=== PATIENT | female | born 1965 | race Caucasian/White ===

== ENCOUNTER → 2016-12-11 | Outpatient (CLI) | payer MEDICARE ==
[~2016-12-11] MED LIST: ALPR-475 PO; ARIP10TA13 PO; ASPI-650 PO; ATOR10TA9 PO; ATOR40TA78 PO; CLON-364 PO; DIAZ5TAB PO; DIAZ5TAB4 PO; DIPH25CA61 PO; DOCU-144 PO; DOCU100C8 PO; FENT1PAT76 TD; FENT1PAT76 TP; FERR142T13 PO; HYDR2TAB40 PO; INSU100C SQ-INSULIN; INSU100I17 SQ-INSULIN; INSU100V8 SQ; INSU200I SQ-INSULIN; INSULINS; LEVO175T2 PO; LEVO200T PO; LIOT5TAB3 PO; LORA10TA3 PO; MEDR2.5T30 PO; METH500T97 PO; ONDA-39 PO; PANT40TA5 PO; PREG75CA PO; RANI150T8 PO; RIFA300C3 PO; VENL37.52 PO; VILA40TA PO; VILAZODONE HOMEMEDPO; astelin nasal spray NS
== END | disposition home or self-care (01) ==
LOC: CFH 09:08
PROVIDERS: ATTEND Internal Medicine Nephrology
DX: N28.1 Cyst of kidney, acquired (principal); E11.65 Type 2 diabetes mellitus with hyperglycemia; N18.3 Chronic kidney disease, stage 3 (moderate); E11.22 Type 2 diabetes mellitus with diabetic chronic kidney disease
CPT/HCPCS: 76770

== ENCOUNTER → 2017-03-13 | Outpatient (CLI) | payer MEDICARE ==
[~2017-03-13] MED LIST changes: -ARIP10TA13 PO; +ARIP10TA33 PO; +DOCU100C33 PO; -DOCU100C8 PO; -ONDA-39 PO; +ONDA4TAB12 PO
== END | disposition home or self-care (01) ==
LOC: CFH 15:20
PROVIDERS: ATTEND Nurse Practitioner Primary Care
DX: M47.22 Other spondylosis with radiculopathy, cervical region (principal); M47.893 Other spondylosis, cervicothoracic region; R20.0 Anesthesia of skin; Z98.1 Arthrodesis status
CPT/HCPCS: 72141

== ENCOUNTER → 2017-06-14 | Outpatient (CLI) | payer MEDICARE | END | disposition home or self-care (01) | LOC: CFH 14:10 | PROVIDERS: ATTEND Internal Medicine Nephrology | DX: N17.9 Acute kidney failure, unspecified (principal); N28.1 Cyst of kidney, acquired; E11.65 Type 2 diabetes mellitus with hyperglycemia; E11.22 Type 2 diabetes mellitus with diabetic chronic kidney disease; N18.9 Chronic kidney disease, unspecified; M25.561 Pain in right knee; Z79.1 Long term (current) use of non-steroidal anti-inflammatories (NSAID) | CPT/HCPCS: 76770 ==

== ENCOUNTER → 2017-09-20 | Outpatient (CLI) | payer MEDICARE ==
[~2017-09-20] MED LIST changes: +RANI150T23 PO; -RANI150T8 PO
== END ==
LOC: PETCFH 08:06
PROVIDERS: ATTEND Nurse Practitioner Family
DX: R11.0 Nausea (principal); E11.9 Type 2 diabetes mellitus without complications
CPT/HCPCS: 78264; A9541

== ENCOUNTER → 2017-11-20 | Outpatient (CLI) | payer MEDICARE ==
[~2017-11-20] MED LIST changes: +CHOL500045 PO; +DOXY100T PO; +ESOM40CA PO; +INSU100I11 SC
[2017-11-20 14:32] LABS: INTERNATIONAL NORMALIZED RATIO 1.03 (0.93-1.1); PROTHROMBIN TIME 10.7 Seconds (9.6-11.5)
[2017-11-20 14:35] LABS: ALBUMIN 3.5 g/dL (3.4-5.0); ANION GAP 7 mmol/L (5-15); CALCIUM 9.2 mg/dL (8.5-10.1); CHLORIDE 107 mmol/L (98-107)
[2017-11-20 14:38] LABS: ALANINE AMINOTRANSFERASE 24 U/L (12-78); ALKALINE PHOSPHATASE 131 U/L (45-117); BILIRUBIN,TOTAL 0.4 mg/dL (0.2-1.0); CREATININE 1.14 mg/dL (0.55-1.02); TOTAL PROTEIN 7.6 g/dL (6.4-8.2)
[2017-11-20 14:41] LABS: BASOPHILS # (AUTO) 0.08 x10^3/uL (0-0.1); BASOPHILS % (AUTO) 1 % (0-1); EOSINOPHILS % (AUTO) 0 % (1-7); LYMPHOCYTES # (AUTO) 2.06 x10^3/uL (1-3.4); LYMPHOCYTES % (AUTO) 16 % (22-44); MD NO; MEAN CORPUSCULAR HEMOGLOBIN 27.2 pg (27.0-34.8); MEAN CORPUSCULAR HGB CONC 33.3 g/dL (32.4-35.8); MEAN CORPUSCULAR VOLUME 81.8 fL (80-100); MEAN PLATELET VOLUME 9.2 fL (7.4-10.4); MONOCYTES # (AUTO) 0.74 x10^3/uL (0.2-0.8); MONOCYTES % (AUTO) 6 % (2-9); NEUTROPHILS # (AUTO) 10.05 x10^3/uL (1.8-6.8); NEUTROPHILS % (AUTO) 78 % (42-75); PLATELET COUNT 316 x10^3/uL (130-400); RED BLOOD COUNT 5.02 x10^6/uL (3.82-5.3)
[2017-11-20 14:57] LABS: MICROSCOPIC AUTO
[2017-11-20 14:59] LABS: CULTURE INDICATED? YES
== END | disposition home or self-care (01) ==
LOC: STAR 13:01
PROVIDERS: ATTEND Orthopaedic Surgery Orthopaedic Surgery of the Spine
DX: Z01.818 Encounter for other preprocedural examination (principal); I51.7 Cardiomegaly; M96.0 Pseudarthrosis after fusion or arthrodesis
CPT/HCPCS: 36415; 71046; 80053; 81001; 85025; 85610; 85730; 87086; 93005

== ENCOUNTER → 2017-12-07 | Outpatient (CLI) | payer MEDICARE ==
[~2017-12-07] MED LIST changes: -CLON-364 PO; +CLON0.5T11 PO; +HYDR4TAB48 PO
[2017-12-07 11:51] LABS: BASOPHILS # (AUTO) 0.08 x10^3/uL (0-0.1); BASOPHILS % (AUTO) 1 % (0-1); MD NO; MEAN CORPUSCULAR VOLUME 81.5 fL (80-100); RED CELL DISTRIBUTION WIDTH 15.9 % (9.6-15.2)
[2017-12-07 12:25] LABS: EOSINOPHILS # (AUTO) 0.07 x10^3/uL (0-0.4); EOSINOPHILS % (AUTO) 1 % (1-7); LYMPHOCYTES # (AUTO) 1.87 x10^3/uL (1-3.4); LYMPHOCYTES % (AUTO) 17 % (22-44); MEAN CORPUSCULAR HEMOGLOBIN 27.4 pg (27.0-34.8); MEAN CORPUSCULAR HGB CONC 33.7 g/dL (32.4-35.8); MEAN PLATELET VOLUME 9.3 fL (7.4-10.4); MONOCYTES # (AUTO) 0.62 x10^3/uL (0.2-0.8); MONOCYTES % (AUTO) 6 % (2-9); NEUTROPHILS # (AUTO) 8.32 x10^3/uL (1.8-6.8); NEUTROPHILS % (AUTO) 76 % (42-75); PLATELET COUNT 303 x10^3/uL (130-400); RED BLOOD COUNT 4.87 x10^6/uL (3.82-5.3)
== END | disposition home or self-care (01) ==
LOC: STAR 10:54
PROVIDERS: ATTEND Orthopaedic Surgery Orthopaedic Surgery of the Spine
DX: Z01.818 Encounter for other preprocedural examination (principal); M54.2 Cervicalgia
CPT/HCPCS: 36415; 85025

== ENCOUNTER 2017-12-12 05:44 | Inpatient (IN) | payer MEDICARE ==
[~2017-12-12] VITALS: Ht 162.6 cm; Wt 123.1 kg
[~2017-12-12 05:44] MED LIST changes: -HYDR4TAB48 PO
[2017-12-12] MEDS ORDERED: THROMBIN 5,000 UNIT VIAL TP ONE (06:49)
[2017-12-12] MEDS ORDERED: LIDOCAINE-MPF 1%, 5ML ONE (06:49)
[2017-12-12] MEDS ORDERED: BUPIVACAINE 0.25% ONE (06:49)
[2017-12-12] MEDS ORDERED: VANCOMYCIN 1,000 MG ONE (06:49)
[2017-12-12] MEDS ORDERED: EPINEPHRINE 1 MG/ML, 1ML ONE (06:49)
[2017-12-12] MEDS ORDERED: LACTATED RINGERS 1,000 ML IV SCH (06:58)
[2017-12-12 07:06] VITALS: BP 113/78
[2017-12-12] MEDS ORDERED: GABAPENTIN 300 MG CAPSULE PO ONE (07:30)
[2017-12-12] MEDS ORDERED: FENTANYL PF 250 MCG/5ML ONE (09:29)
[2017-12-12] MEDS ORDERED: MIDAZOLAM 1 MG/ML, 2ML ONE (09:29)
[2017-12-12] MEDS ORDERED: LINEZOLID PMX 600MG/300ML 300 ML IV ONE (09:30)
[2017-12-12] MEDS ORDERED: ONDANSETRON 2MG/ML, 2ML ONE (10:50)
[2017-12-12] MEDS ORDERED: PROPOFOL 10 MG/ML, 20ML ONE (10:50)
[2017-12-12] MEDS ORDERED: ROCURONIUM 10 MG/ML,10ML ONE (10:50)
[2017-12-12] MEDS ORDERED: SUCCINYLCHOLINE 20 MG/ML, 10ML ONE (10:50)
[2017-12-12] MEDS ORDERED: LIDOCAINE 1%, 10ML INFIL ONE (11:54)
[2017-12-12] MEDS ORDERED: hydrALAzine 20 MG/ML, 1ML IV PRN (12:00)
[2017-12-12] MEDS ORDERED: HYDROmorphone 1 MG/ML, 1ML IV PRN (12:00)
[2017-12-12] MEDS ORDERED: MIDAZOLAM 1 MG/ML, 2ML IV PRN (12:00)
[2017-12-12] MEDS ORDERED: ONDANSETRON 2MG/ML, 2ML IV PRN ×2 (12:00→15:30)
[2017-12-12] MEDS ORDERED: FENTANYL PF 100 MCG/2ML IV PRN (12:00)
[2017-12-12] MEDS ORDERED: PROMETHAZINE 25 MG SUPP PR PRN (12:00)
[2017-12-12] MEDS ORDERED: LABETALOL 5MG/ML, 20ML IV PRN (12:00)
[2017-12-12] MEDS ORDERED: HYDROmorphone 2MG TABLET ONE (13:18)
[2017-12-12] MEDS ORDERED: MEPERIDINE/PF 50 MG/ML ONE (13:18)
[2017-12-12] MEDS: MEPERIDINE/PF 25MG/0.5ML IVPush PRN ×2 (13:21→13:58)
[2017-12-12] MEDS ORDERED: HYDROmorphone 2MG TABLET PO ONE (13:30)
[2017-12-12] MEDS ORDERED: MAGNESIUM HYDROXIDE 8%, 30ML UDC PO PRN (15:30)
[2017-12-12] MEDS ORDERED: DIPHENHYDRAMINE 50 MG/ML, 1ML IVPush PRN (15:30)
[2017-12-12] MEDS ORDERED: BISACODYL 10 MG SUPP PR PRN (15:30)
[2017-12-12] MEDS ORDERED: DIPHENHYDRAMINE 50 MG CAPSULE PO PRN ×2 (15:30→19:41)
[2017-12-12] MEDS ORDERED: DIPHENHYDRAMINE 50 MG/ML, 1ML IM PRN ×2 (15:30→19:42)
[2017-12-12] MEDS ORDERED: HYDROmorphone 1 MG/ML, 1ML IM PRN (15:30)
[2017-12-12] MEDS ORDERED: PROMETHAZINE 25 MG/ML, 1ML IM PRN (15:30)
[2017-12-12] MEDS: NS + 20MEQ KCL 1,000 ML IV SCH (15:56)
[2017-12-12] MEDS: HYDROmorphone 2MG TABLET PO PRN ×2 (15:56→20:01)
[2017-12-12] MEDS: LEVOTHYROXINE 200 MCG TABLET PO SCH (19:38)
[2017-12-12 19:42] VITALS: BP 130/84
[2017-12-12] MEDS ORDERED: LEVOTHYROXINE 100 MCG TABLET ONE (19:57)
[2017-12-12] MEDS: PREGABALIN 75 MG CAPSULE PO SCH (20:00)
[2017-12-12] MEDS ORDERED: CALCIUM CARBONATE 500 MG TAB.CHEW PO PRN ×2 (20:00→20:30)
[2017-12-12] MEDS: PREGABALIN 150 MG CAPSULE PO SCH (20:00)
[2017-12-12] MEDS: DIPHENHYDRAMINE 50 MG/ML, 1ML IVPush PRN (20:02)
[2017-12-12] MEDS: INSULIN LISPRO 100 UNITS/ML, PEN SQ-INSULIN SCH (20:30)
[2017-12-12] MEDS ORDERED: ATORVASTATIN 40 MG TABLET PO SCH (21:00)
[2017-12-12] MEDS ORDERED: INSULIN GLARGINE 100 UNITS/ML, PEN SQ-INSULIN SCH (21:00)
[2017-12-12 23:34] VITALS: BP 108/71
[2017-12-12] MEDS: INSULIN GLARGINE 100 UNITS/ML, PEN SQ-INSULIN SCH (23:40)
[2017-12-13] MEDS: DIPHENHYDRAMINE 50 MG/ML, 1ML IVPush PRN ×5 (00:15→21:17)
[2017-12-13] MEDS: HYDROmorphone 2MG TABLET PO PRN ×6 (00:15→21:32)
[2017-12-13] MEDS: NS + 20MEQ KCL 1,000 ML IV SCH ×3 (01:30→21:30)
[2017-12-13 03:02] VITALS: BP 126/71
[2017-12-13] MEDS ORDERED: LEVOTHYROXINE 175 MCG TABLET PO SCH (06:00)
[2017-12-13 06:06] LABS: HCT (SEDRATE) 36.9 % (34.6-47.8)
[2017-12-13 06:08] LABS: BASOPHILS # (AUTO) 0.07 x10^3/uL (0-0.1); BASOPHILS % (AUTO) 1 % (0-1); EOSINOPHILS # (AUTO) 0.28 x10^3/uL (0-0.4); EOSINOPHILS % (AUTO) 2 % (1-7); LYMPHOCYTES # (AUTO) 2.04 x10^3/uL (1-3.4); LYMPHOCYTES % (AUTO) 17 % (22-44); MD NO; MEAN CORPUSCULAR HEMOGLOBIN 26.5 pg (27.0-34.8); MEAN CORPUSCULAR HGB CONC 32.7 g/dL (32.4-35.8); MEAN CORPUSCULAR VOLUME 81.1 fL (80-100); MEAN PLATELET VOLUME 8.6 fL (7.4-10.4); MONOCYTES # (AUTO) 0.73 x10^3/uL (0.2-0.8); MONOCYTES % (AUTO) 6 % (2-9); NEUTROPHILS # (AUTO) 8.97 x10^3/uL (1.8-6.8); NEUTROPHILS % (AUTO) 74 % (42-75); PLATELET COUNT 274 x10^3/uL (130-400); RED BLOOD COUNT 4.59 x10^6/uL (3.82-5.3); RED CELL DISTRIBUTION WIDTH 15.9 % (9.6-15.2)
[2017-12-13 06:18] LABS: ALANINE AMINOTRANSFERASE 72 U/L (12-78); ALBUMIN 2.9 g/dL (3.4-5.0); ANION GAP 7 mmol/L (5-15); CHLORIDE 109 mmol/L (98-107)
[2017-12-13 06:24] LABS: ALKALINE PHOSPHATASE 169 U/L (45-117); BILIRUBIN,TOTAL 0.7 mg/dL (0.2-1.0); CREATININE 1.12 mg/dL (0.55-1.02); TOTAL PROTEIN 6.5 g/dL (6.4-8.2)
[2017-12-13] MEDS ORDERED: LEVOTHYROXINE 125 MCG TABLET ONE (08:02)
[2017-12-13] MEDS ORDERED: LEVOTHYROXINE 25 MCG TABLET ONE (08:02)
[2017-12-13] MEDS: PREGABALIN 150 MG CAPSULE PO SCH ×2 (08:15→21:16)
[2017-12-13] MEDS: ATORVASTATIN 40 MG TABLET PO SCH (08:16)
[2017-12-13] MEDS: LORATADINE 10 MG TABLET PO SCH (08:16)
[2017-12-13] MEDS: OMEPRAZOLE 20 MG CAPSULE.DR PO SCH (08:16)
[2017-12-13] MEDS: INSULIN LISPRO 100 UNITS/ML, PEN SQ-INSULIN SCH ×4 (08:17→21:32)
[2017-12-13] MEDS: SENNA/DOCUSATE TABLET PO SCH (08:17)
[2017-12-13] MEDS: OXYBUTYNIN CHLORIDE 5 MG TABLET PO SCH (08:17)
[2017-12-13] MEDS: PREGABALIN 75 MG CAPSULE PO SCH ×2 (08:17→21:16)
[2017-12-13] MEDS: VILAZODONE 40 MG PO SCH (08:19)
[2017-12-13] MEDS: DOXYCYCLINE 100MG TABLET PO SCH (08:20)
[2017-12-13] MEDS: MEDROXYPROGESTERONE ACETATE 2.5 MG TABLET PO SCH (08:20)
[2017-12-13 09:19] VITALS: BP 104/69
[2017-12-13] MEDS ORDERED: [UNRECOGNIZED DRUG - REMARK] MC PRN (12:30)
[2017-12-13] MEDS ORDERED: [UNRECOGNIZED DRUG - REMARK] MC PRN (12:30)
[2017-12-13 15:23] VITALS: BP 106/71
[2017-12-13 19:37] VITALS: BP 115/77
[2017-12-13] MEDS: INSULIN GLARGINE 100 UNITS/ML, PEN SQ-INSULIN SCH (21:32)
[2017-12-14 00:46] VITALS: BP 107/69
[2017-12-14] MEDS: DIPHENHYDRAMINE 50 MG/ML, 1ML IVPush PRN ×4 (01:34→13:31)
[2017-12-14] MEDS: HYDROmorphone 2MG TABLET PO PRN ×4 (01:35→13:31)
[2017-12-14] MEDS: LEVOTHYROXINE 200 MCG TABLET PO SCH (05:31)
[2017-12-14 07:32] VITALS: BP 112/76
[2017-12-14] MEDS: INSULIN LISPRO 100 UNITS/ML, PEN SQ-INSULIN SCH ×2 (07:51→11:59)
[2017-12-14] MEDS: OMEPRAZOLE 20 MG CAPSULE.DR PO SCH (07:51)
[2017-12-14] MEDS: PREGABALIN 150 MG CAPSULE PO SCH (09:40)
[2017-12-14] MEDS: OXYBUTYNIN CHLORIDE 5 MG TABLET PO SCH (09:40)
[2017-12-14] MEDS: PREGABALIN 75 MG CAPSULE PO SCH (09:40)
[2017-12-14] MEDS: SENNA/DOCUSATE TABLET PO SCH (09:40)
[2017-12-14] MEDS: MEDROXYPROGESTERONE ACETATE 2.5 MG TABLET PO SCH (09:40)
[2017-12-14] MEDS: DOXYCYCLINE 100MG TABLET PO SCH (09:40)
[2017-12-14] MEDS: LORATADINE 10 MG TABLET PO SCH (09:40)
[2017-12-14] MEDS: VILAZODONE 40 MG PO SCH (09:41)
[2017-12-14] MEDS: ATORVASTATIN 40 MG TABLET PO SCH (09:42)
[2017-12-14 13:00] VITALS: BP 109/74
[2017-12-14] MEDS ORDERED: HYDR4TAB48 PO (13:49)
== END 2017-12-14 14:18 | disposition home or self-care (01) | DRG 472 ==
LOC: ORIP 05:44 → 4NOR 14:46
PROVIDERS: ADMIT Orthopaedic Surgery Orthopaedic Surgery of the Spine; ATTEND Orthopaedic Surgery Orthopaedic Surgery of the Spine
PROC: 0RG10K0 Fusion of Cervical Vertebral Joint with Nonautologous Tissue Substitute, Anterior Approach, Anterior Column, Open Approach (ICD-10-PCS; 2017-12-12)
PROC: 5A09357 Assistance with Respiratory Ventilation, Less than 24 Consecutive Hours, Continuous Positive Airway Pressure (ICD-10-PCS; 2017-12-12)
PROC: 4A11X4G Monitoring of Peripheral Nervous Electrical Activity, Intraoperative, External Approach (ICD-10-PCS; 2017-12-12)
PROC: 0RB30ZZ Excision of Cervical Vertebral Disc, Open Approach (ICD-10-PCS; principal; 2017-12-12 11:00)
PROC: 5A09357 Assistance with Respiratory Ventilation, Less than 24 Consecutive Hours, Continuous Positive Airway Pressure (ICD-10-PCS; 2017-12-14)
DX: M96.0 Pseudarthrosis after fusion or arthrodesis (principal); Z68.42 Body mass index [BMI] 45.0-49.9, adult; F17.210 Nicotine dependence, cigarettes, uncomplicated; E66.01 Morbid (severe) obesity due to excess calories; F32.9 Major depressive disorder, single episode, unspecified; F41.9 Anxiety disorder, unspecified; M85.80 Other specified disorders of bone density and structure, unspecified site; N18.3 Chronic kidney disease, stage 3 (moderate); E11.22 Type 2 diabetes mellitus with diabetic chronic kidney disease; Z79.4 Long term (current) use of insulin; E55.9 Vitamin D deficiency, unspecified; E78.5 Hyperlipidemia, unspecified; Z92.3 Personal history of irradiation; Z96.651 Presence of right artificial knee joint; N32.89 Other specified disorders of bladder; M10.9 Gout, unspecified; E89.0 Postprocedural hypothyroidism; G43.909 Migraine, unspecified, not intractable, without status migrainosus; C73 Malignant neoplasm of thyroid gland; G47.30 Sleep apnea, unspecified; G89.29 Other chronic pain; K21.9 Gastro-esophageal reflux disease without esophagitis; L50.9 Urticaria, unspecified; M17.12 Unilateral primary osteoarthritis, left knee; M77.9 Enthesopathy, unspecified; Z79.899 Other long term (current) drug therapy; Z79.2 Long term (current) use of antibiotics; Z82.49 Family history of ischemic heart disease and other diseases of the circulatory system; Z82.5 Family history of asthma and other chronic lower respiratory diseases; Z83.3 Family history of diabetes mellitus; Z85.850 Personal history of malignant neoplasm of thyroid; Z86.14 Personal history of Methicillin resistant Staphylococcus aureus infection; Z88.1 Allergy status to other antibiotic agents; Z87.01 Personal history of pneumonia (recurrent); Z98.84 Bariatric surgery status; Z88.8 Allergy status to other drugs, medicaments and biological substances
CPT/HCPCS: 36415; 72040; 80053; 82784; 82787; 82962; 83036; 84550; 85025; 85651; 86140; 86480; C1713; J0171; J2175; J2250; J2405; J2704; J3010; J3370; J3480; J3490; C1762; J0330; J1200; J1815; J7120

== ENCOUNTER 2018-02-18 12:50 | Emergency (ER) | payer MEDICARE ==
[~2018-02-18] VITALS: Ht 162.6 cm; Wt 119.8 kg
[~2018-02-18 12:50] MED LIST changes: +HYDR4TAB48 PO
[2018-02-18 13:52] LABS: MICROSCOPIC AUTO
[2018-02-18 13:56] LABS: BASOPHILS # (AUTO) 0.07 x10^3/uL (0-0.1); BASOPHILS % (AUTO) 1 % (0-1); EOSINOPHILS % (AUTO) 0 % (1-7); LYMPHOCYTES # (AUTO) 2.21 x10^3/uL (1-3.4); LYMPHOCYTES % (AUTO) 18 % (22-44); MD NO; MEAN CORPUSCULAR HGB CONC 32.9 g/dL (32.4-35.8); MEAN CORPUSCULAR VOLUME 78.9 fL (80-100); MEAN PLATELET VOLUME 9.6 fL (7.4-10.4); MONOCYTES # (AUTO) 0.65 x10^3/uL (0.2-0.8); MONOCYTES % (AUTO) 5 % (2-9); NEUTROPHILS # (AUTO) 9.65 x10^3/uL (1.8-6.8); NEUTROPHILS % (AUTO) 77 % (42-75); PLATELET COUNT 309 x10^3/uL (130-400); RED CELL DISTRIBUTION WIDTH 17.9 % (9.6-15.2)
[2018-02-18 13:57] LABS: CULTURE INDICATED? YES
[2018-02-18 13:57] LABS: INTERNATIONAL NORMALIZED RATIO 1.04 (0.93-1.1); PROTHROMBIN TIME 10.7 Seconds (9.6-11.5)
[2018-02-18 13:59] LABS: ALANINE AMINOTRANSFERASE 22 U/L (12-78); ALBUMIN 3.1 g/dL (3.4-5.0); ANION GAP 10 mmol/L (5-15); CALCIUM 8.6 mg/dL (8.5-10.1); CHLORIDE 108 mmol/L (98-107)
[2018-02-18 14:03] LABS: ALKALINE PHOSPHATASE 151 U/L (45-117); BILIRUBIN,TOTAL 0.5 mg/dL (0.2-1.0); TOTAL PROTEIN 7.3 g/dL (6.4-8.2)
[2018-02-18 15:33] VITALS: BP 134/79
[2018-02-18] MEDS ORDERED: OMNIPAQUE 350 MG/ML, 100ML BOTTLE ONE (15:56)
== END 2018-02-18 15:54 ==
LOC: ED 14:44
DX: R10.2 Pelvic and perineal pain (principal); E11.9 Type 2 diabetes mellitus without complications; R10.31 Right lower quadrant pain
CPT/HCPCS: 36415; 74177; 76856; 80053; 81001; 83690; 84703; 85025; 85610; 85730; 87086; 99285; Q9967

== ENCOUNTER 2018-02-21 20:40 | Emergency (ER) | payer MEDICARE ==
[~2018-02-21] VITALS: Ht 162.6 cm; Wt 121.8 kg
[2018-02-21 21:26] LABS: BASOPHILS # (AUTO) 0.07 x10^3/uL (0-0.1); BASOPHILS % (AUTO) 1 % (0-1); EOSINOPHILS # (AUTO) 0.16 x10^3/uL (0-0.4); EOSINOPHILS % (AUTO) 1 % (1-7); LYMPHOCYTES # (AUTO) 2.58 x10^3/uL (1-3.4); LYMPHOCYTES % (AUTO) 18 % (22-44); MD NO; MEAN CORPUSCULAR HEMOGLOBIN 26.6 pg (27.0-34.8); MEAN CORPUSCULAR HGB CONC 33.6 g/dL (32.4-35.8); MEAN CORPUSCULAR VOLUME 79.1 fL (80-100); MEAN PLATELET VOLUME 9.4 fL (7.4-10.4); MONOCYTES # (AUTO) 0.55 x10^3/uL (0.2-0.8); MONOCYTES % (AUTO) 4 % (2-9); NEUTROPHILS # (AUTO) 10.78 x10^3/uL (1.8-6.8); NEUTROPHILS % (AUTO) 76 % (42-75); PLATELET COUNT 303 x10^3/uL (130-400); RED BLOOD COUNT 5.44 x10^6/uL (3.82-5.3); RED CELL DISTRIBUTION WIDTH 17.9 % (9.6-15.2)
[2018-02-21] MEDS ORDERED: KETOROLAC 30 MG/1 ML ONE (21:28)
[2018-02-21 21:29] LABS: ALANINE AMINOTRANSFERASE 23 U/L (12-78); ALBUMIN 3.4 g/dL (3.4-5.0); ANION GAP 10 mmol/L (5-15); CALCIUM 8.8 mg/dL (8.5-10.1); CHLORIDE 107 mmol/L (98-107); CREATININE 1.55 mg/dL (0.55-1.02)
[2018-02-21] MEDS ORDERED: KETOROLAC 30 MG/1 ML IM ONE (21:30)
[2018-02-21 21:32] LABS: ALKALINE PHOSPHATASE 142 U/L (45-117); BILIRUBIN,TOTAL 0.6 mg/dL (0.2-1.0); TOTAL PROTEIN 7.3 g/dL (6.4-8.2)
[2018-02-21] MEDS ORDERED: DIPHENHYDRAMINE 25 MG CAPSULE ONE (22:11)
[2018-02-21] MEDS ORDERED: DIPHENHYDRAMINE 25 MG CAPSULE PO ONE (22:30)
[2018-02-21] MEDS ORDERED: ZIPRASIDONE 20 MG INJ IM ONE ×2 (22:30→22:54)
[2018-02-21 23:06] VITALS: BP 115/74
== END 2018-02-21 21:57 | disposition home or self-care (01) ==
LOC: ED 21:24
DX: E11.22 Type 2 diabetes mellitus with diabetic chronic kidney disease (principal); N18.9 Chronic kidney disease, unspecified; R10.31 Right lower quadrant pain; Z90.49 Acquired absence of other specified parts of digestive tract
CPT/HCPCS: 36415; 80053; 83690; 85025; 96372; 99284; J1885; J3486; Q0163

== ENCOUNTER 2018-04-23 11:59 | Day surgery (SDC) | payer MEDICARE ==
[~2018-04-23] VITALS: Ht 162.6 cm; Wt 116.9 kg
[~2018-04-23 11:59] MED LIST changes: +METF500T17 PO; +ONDA4TAB13 SL; +OXYB5TAB7 PO; +SPIR25TA5 PO
[2018-04-23] MEDS ORDERED: BUPIVACAINE/PF-EPI 0.5% 1:200K ONE ×2 (12:18→14:06)
[2018-04-23 13:01] VITALS: BP 120/82
[2018-04-23] MEDS ORDERED: SODIUM CHLORIDE 0.9% 1,000 ML IV SCH (13:25)
[2018-04-23] MEDS ORDERED: FENTANYL PF 250 MCG/5ML ONE (13:43)
[2018-04-23] MEDS ORDERED: MIDAZOLAM 1 MG/ML, 2ML ONE (13:43)
[2018-04-23] MEDS ORDERED: ONDANSETRON 2MG/ML, 2ML ONE (14:18)
[2018-04-23] MEDS ORDERED: DEXAMETHASONE 4 MG/ML, 1ML ONE (14:18)
[2018-04-23] MEDS ORDERED: ROCURONIUM 10 MG/ML,10ML ONE (14:18)
[2018-04-23] MEDS ORDERED: DIPHENHYDRAMINE 50 MG/ML, 1ML ONE ×2 (14:18→15:57)
[2018-04-23] MEDS ORDERED: PROPOFOL 10 MG/ML, 20ML ONE (14:18)
[2018-04-23] MEDS ORDERED: FENTANYL PF 100 MCG/2ML ONE (14:37)
[2018-04-23] MEDS ORDERED: FENTANYL PF 100 MCG/2ML IV PRN (15:30)
[2018-04-23] MEDS ORDERED: HYDROmorphone 2MG TABLET PO ONE (15:30)
[2018-04-23] MEDS ORDERED: PROMETHAZINE 25 MG/ML, 1ML IV PRN (15:30)
[2018-04-23] MEDS ORDERED: DIPHENHYDRAMINE 50 MG/ML, 1ML IVPush ONE (16:00)
== END 2018-04-23 17:30 | disposition home or self-care (01) ==
LOC: OUT 11:59
PROVIDERS: ATTEND Surgery
DX: K38.8 Other specified diseases of appendix (principal); E78.5 Hyperlipidemia, unspecified; E11.9 Type 2 diabetes mellitus without complications; E03.9 Hypothyroidism, unspecified; E66.9 Obesity, unspecified; F17.210 Nicotine dependence, cigarettes, uncomplicated; Z88.6 Allergy status to analgesic agent; Z88.1 Allergy status to other antibiotic agents; Z88.5 Allergy status to narcotic agent; Z88.8 Allergy status to other drugs, medicaments and biological substances; Z79.899 Other long term (current) drug therapy; Z98.890 Other specified postprocedural states; Z85.850 Personal history of malignant neoplasm of thyroid; Z90.49 Acquired absence of other specified parts of digestive tract
CPT/HCPCS: 44970; 82962; 88304; J1100; J1200; J2250; J2405; J2704; J3010; J7030

== ENCOUNTER 2018-05-15 06:21 | Day surgery (SDC) | payer MEDICARE ==
[~2018-05-15] VITALS: Ht 162.6 cm; Wt 114.0 kg
[2018-05-15] MEDS ORDERED: LACTATED RINGERS 1,000 ML IV SCH (07:22)
[2018-05-15] MEDS ORDERED: LIDOCAINE-MPF 1%, 2ML INFIL ONE (07:30)
[2018-05-15] MEDS ORDERED: BACITRACIN OINT 500U/GM, 15 GM ONE (08:02)
[2018-05-15] MEDS ORDERED: MIDAZOLAM 1 MG/ML, 2ML ONE (08:04)
[2018-05-15] MEDS ORDERED: FENTANYL PF 250 MCG/5ML ONE (08:04)
[2018-05-15 08:07] VITALS: BP 115/80
[2018-05-15] MEDS ORDERED: DEXMEDETOMIDINE 200 MCG/2 ML ONE (08:21)
[2018-05-15] MEDS ORDERED: PROPOFOL 10 MG/ML, 20ML ONE (08:21)
[2018-05-15] MEDS ORDERED: ONDANSETRON 2MG/ML, 2ML ONE (08:21)
[2018-05-15] MEDS ORDERED: CLINDAMYCIN 150 MG/ML, 6ML ONE (08:28)
[2018-05-15] MEDS ORDERED: hydrALAzine 20 MG/ML, 1ML IV PRN (09:00)
[2018-05-15] MEDS ORDERED: HYDROmorphone 2MG TABLET PO PRN (09:00)
[2018-05-15] MEDS ORDERED: ACETAMINOPHEN 325 MG TABLET PO PRN (09:00)
[2018-05-15] MEDS ORDERED: HALOPERIDOL 5 MG/ML IV PRN (09:00)
[2018-05-15] MEDS ORDERED: DIPHENHYDRAMINE 50 MG/ML, 1ML ONE (09:15)
[2018-05-15] MEDS: DIPHENHYDRAMINE 50 MG/ML, 1ML IVPush PRN ×2 (09:17→10:59)
[2018-05-15] MEDS ORDERED: FENTANYL PF 100 MCG/2ML ONE (09:26)
[2018-05-15] MEDS: FENTANYL PF 100 MCG/2ML IV PRN ×2 (09:28→09:47)
== END 2018-05-15 11:40 | disposition home or self-care (01) ==
LOC: OUT 06:21
PROVIDERS: ATTEND Surgery
DX: L02.214 Cutaneous abscess of groin (principal); E11.22 Type 2 diabetes mellitus with diabetic chronic kidney disease; N18.3 Chronic kidney disease, stage 3 (moderate); E78.5 Hyperlipidemia, unspecified; K21.9 Gastro-esophageal reflux disease without esophagitis; E03.9 Hypothyroidism, unspecified; G47.33 Obstructive sleep apnea (adult) (pediatric); Z88.6 Allergy status to analgesic agent; Z88.1 Allergy status to other antibiotic agents; Z88.8 Allergy status to other drugs, medicaments and biological substances; Z85.850 Personal history of malignant neoplasm of thyroid; Z98.890 Other specified postprocedural states
CPT/HCPCS: 10060; 82962; 87070; 87075; 87147; 87205; J1200; J2250; J2405; J2704; J3010; J7120

== ENCOUNTER → 2018-05-20 | Outpatient (CLI) | payer MEDICARE | END | disposition home or self-care (01) | LOC: WOUND 09:37 | PROVIDERS: ATTEND Internal Medicine | DX: T81.89XD Other complications of procedures, not elsewhere classified, subsequent encounter (principal); I12.9 Hypertensive chronic kidney disease with stage 1 through stage 4 chronic kidney disease, or unspecified chronic kidney disease; E11.22 Type 2 diabetes mellitus with diabetic chronic kidney disease; N18.3 Chronic kidney disease, stage 3 (moderate); E11.40 Type 2 diabetes mellitus with diabetic neuropathy, unspecified; K21.9 Gastro-esophageal reflux disease without esophagitis; E78.5 Hyperlipidemia, unspecified; F41.9 Anxiety disorder, unspecified; G89.29 Other chronic pain; E03.9 Hypothyroidism, unspecified; G47.33 Obstructive sleep apnea (adult) (pediatric); E66.9 Obesity, unspecified; Z68.41 Body mass index [BMI] 40.0-44.9, adult; Z87.891 Personal history of nicotine dependence; Z85.850 Personal history of malignant neoplasm of thyroid; Z90.49 Acquired absence of other specified parts of digestive tract | CPT/HCPCS: 97597; 99215 ==

== ENCOUNTER → 2018-05-27 | Outpatient (CLI) | payer MEDICARE ==
[~2018-05-27] MED LIST changes: +LORA-247 PO; -LORA10TA3 PO
== END | disposition home or self-care (01) ==
LOC: WOUND 09:19
PROVIDERS: ATTEND Internal Medicine
DX: T81.89XD Other complications of procedures, not elsewhere classified, subsequent encounter (principal); I12.9 Hypertensive chronic kidney disease with stage 1 through stage 4 chronic kidney disease, or unspecified chronic kidney disease; E11.22 Type 2 diabetes mellitus with diabetic chronic kidney disease; N18.3 Chronic kidney disease, stage 3 (moderate); E78.5 Hyperlipidemia, unspecified; E11.40 Type 2 diabetes mellitus with diabetic neuropathy, unspecified; G43.909 Migraine, unspecified, not intractable, without status migrainosus; K21.9 Gastro-esophageal reflux disease without esophagitis; E03.9 Hypothyroidism, unspecified; L02.211 Cutaneous abscess of abdominal wall; G62.9 Polyneuropathy, unspecified; F41.9 Anxiety disorder, unspecified; G89.29 Other chronic pain; E66.9 Obesity, unspecified; R11.0 Nausea; G47.33 Obstructive sleep apnea (adult) (pediatric); Z79.4 Long term (current) use of insulin; Z68.41 Body mass index [BMI] 40.0-44.9, adult; Z87.891 Personal history of nicotine dependence; Z90.49 Acquired absence of other specified parts of digestive tract; Z85.850 Personal history of malignant neoplasm of thyroid; Y83.8 Other surgical procedures as the cause of abnormal reaction of the patient, or of later complication, without mention of misadventure at the time of the procedure
CPT/HCPCS: 97597

== ENCOUNTER 2018-06-03 10:49 | Outpatient (CLI) | payer MEDICARE | END 2018-06-03 23:59 | disposition home or self-care (01) | LOC: WOUND 10:49 | PROVIDERS: ATTEND Internal Medicine | DX: T81.89XD Other complications of procedures, not elsewhere classified, subsequent encounter (principal); E11.22 Type 2 diabetes mellitus with diabetic chronic kidney disease; I12.9 Hypertensive chronic kidney disease with stage 1 through stage 4 chronic kidney disease, or unspecified chronic kidney disease; N18.3 Chronic kidney disease, stage 3 (moderate); E78.5 Hyperlipidemia, unspecified; E11.40 Type 2 diabetes mellitus with diabetic neuropathy, unspecified; G43.909 Migraine, unspecified, not intractable, without status migrainosus; K21.9 Gastro-esophageal reflux disease without esophagitis; E03.9 Hypothyroidism, unspecified; L02.211 Cutaneous abscess of abdominal wall; E11.42 Type 2 diabetes mellitus with diabetic polyneuropathy; F41.9 Anxiety disorder, unspecified; G89.29 Other chronic pain; E66.9 Obesity, unspecified; G47.33 Obstructive sleep apnea (adult) (pediatric); F17.210 Nicotine dependence, cigarettes, uncomplicated; Z90.49 Acquired absence of other specified parts of digestive tract; Z85.850 Personal history of malignant neoplasm of thyroid; Z79.899 Other long term (current) drug therapy; Z88.6 Allergy status to analgesic agent; Z88.1 Allergy status to other antibiotic agents; Z88.5 Allergy status to narcotic agent; Z88.8 Allergy status to other drugs, medicaments and biological substances; Z88.2 Allergy status to sulfonamides; Z79.4 Long term (current) use of insulin; Z68.41 Body mass index [BMI] 40.0-44.9, adult; Y83.8 Other surgical procedures as the cause of abnormal reaction of the patient, or of later complication, without mention of misadventure at the time of the procedure | CPT/HCPCS: 97597 ==

== ENCOUNTER → 2018-06-10 | Outpatient (CLI) | payer MEDICARE | END | disposition home or self-care (01) | LOC: WOUND 10:18 | PROVIDERS: ATTEND Internal Medicine | DX: T81.89XD Other complications of procedures, not elsewhere classified, subsequent encounter (principal); L02.211 Cutaneous abscess of abdominal wall; E11.42 Type 2 diabetes mellitus with diabetic polyneuropathy; I12.9 Hypertensive chronic kidney disease with stage 1 through stage 4 chronic kidney disease, or unspecified chronic kidney disease; E11.22 Type 2 diabetes mellitus with diabetic chronic kidney disease; N18.9 Chronic kidney disease, unspecified; R11.0 Nausea; E03.9 Hypothyroidism, unspecified; E78.5 Hyperlipidemia, unspecified; F41.9 Anxiety disorder, unspecified; G89.29 Other chronic pain; G47.33 Obstructive sleep apnea (adult) (pediatric); G43.909 Migraine, unspecified, not intractable, without status migrainosus; K21.9 Gastro-esophageal reflux disease without esophagitis; E66.9 Obesity, unspecified; Z68.41 Body mass index [BMI] 40.0-44.9, adult; Z79.4 Long term (current) use of insulin; Z87.891 Personal history of nicotine dependence; Z85.850 Personal history of malignant neoplasm of thyroid; Z90.49 Acquired absence of other specified parts of digestive tract; Y83.8 Other surgical procedures as the cause of abnormal reaction of the patient, or of later complication, without mention of misadventure at the time of the procedure | CPT/HCPCS: 97597 ==

== ENCOUNTER → 2018-06-17 | Outpatient (CLI) | payer MEDICARE | END | disposition home or self-care (01) | LOC: WOUND 13:02 | PROVIDERS: ATTEND Internal Medicine | DX: L02.211 Cutaneous abscess of abdominal wall (principal); E11.42 Type 2 diabetes mellitus with diabetic polyneuropathy; I12.9 Hypertensive chronic kidney disease with stage 1 through stage 4 chronic kidney disease, or unspecified chronic kidney disease; E11.22 Type 2 diabetes mellitus with diabetic chronic kidney disease; N18.3 Chronic kidney disease, stage 3 (moderate); E78.5 Hyperlipidemia, unspecified; E03.9 Hypothyroidism, unspecified; G89.29 Other chronic pain; R11.0 Nausea; G47.33 Obstructive sleep apnea (adult) (pediatric); K21.9 Gastro-esophageal reflux disease without esophagitis; G43.909 Migraine, unspecified, not intractable, without status migrainosus; F41.9 Anxiety disorder, unspecified; E66.9 Obesity, unspecified; Z68.41 Body mass index [BMI] 40.0-44.9, adult; Z85.850 Personal history of malignant neoplasm of thyroid; Z79.4 Long term (current) use of insulin; Z90.49 Acquired absence of other specified parts of digestive tract; Z87.891 Personal history of nicotine dependence | CPT/HCPCS: 99214 ==

== ENCOUNTER → 2018-10-16 | Outpatient (CLI) | payer MEDICARE ==
[~2018-10-16] MED LIST changes: +CLIN300C8 PO; +LIRA0.6P2 SQ-INSULIN; +TORS5TAB4 PO
== END | disposition home or self-care (01) ==
LOC: RAD 08:49
PROVIDERS: ATTEND Internal Medicine Infectious Disease
DX: Z45.2 Encounter for adjustment and management of vascular access device (principal); H61.012 Acute perichondritis of left external ear; A49.1 Streptococcal infection, unspecified site; Z79.2 Long term (current) use of antibiotics
CPT/HCPCS: 36573; C1751

== ENCOUNTER 2018-12-26 07:39 | Outpatient (CLI) | payer MEDICARE | END 2018-12-26 23:59 | disposition home or self-care (01) | LOC: RAD 07:39 | PROVIDERS: ATTEND Internal Medicine Infectious Disease | DX: Z45.2 Encounter for adjustment and management of vascular access device (principal); H61.012 Acute perichondritis of left external ear; Z79.2 Long term (current) use of antibiotics | CPT/HCPCS: 36573; C1751 ==

== ENCOUNTER → 2019-12-03 | Outpatient (CLI) | payer MEDICARE ==
[~2019-12-03] MED LIST changes: -ALPR-475 PO; +ALPR0.5T7 PO; +BUSP15TA PO; +CLON-364 PO; -CLON0.5T11 PO; +FENT1PAT75 TD; +FLUC100T PO; +INSU100I11 SQ-INSULIN; +LEVO500T47 PO; +LIOT5TAB11 PO; -LIOT5TAB3 PO; +ONDA-89 PO; -ONDA4TAB12 PO; +OXYB5TAB10 PO; -OXYB5TAB7 PO; +PIOG15TA22 PO; +RANI-467 PO; -RANI150T23 PO
== END | disposition home or self-care (01) ==
LOC: CFH 15:27
PROVIDERS: ATTEND Registered Nurse
DX: I45.81 Long QT syndrome (principal)
CPT/HCPCS: 93005

== ENCOUNTER → 2019-12-10 | Outpatient (CLI) | payer MEDICARE | END | disposition home or self-care (01) | LOC: STAR 13:02 | PROVIDERS: ATTEND Nurse Practitioner Family | DX: Z01.818 Encounter for other preprocedural examination (principal); I45.81 Long QT syndrome; I49.9 Cardiac arrhythmia, unspecified; R07.9 Chest pain, unspecified | CPT/HCPCS: 93005 ==

== ENCOUNTER → 2019-12-18 | Outpatient (CLI) | payer MEDICARE | END | disposition home or self-care (01) | LOC: STAR 13:42 | PROVIDERS: ATTEND Nurse Practitioner Family | DX: I45.81 Long QT syndrome (principal) | CPT/HCPCS: 93005 ==

== ENCOUNTER 2020-04-14 12:01 | Outpatient (CLI) | payer MEDICARE ==
[~2020-04-14 12:01] MED LIST changes: -CLIN300C8 PO; +CLIN300C9 PO; +GADOTERATE 7.5 MMOL/15 ML SYR ONE; -PANT40TA5 PO; +PANT40TA6 PO
== END 2020-04-14 23:59 | disposition home or self-care (01) ==
LOC: RAD 12:01
DX: M25.461 Effusion, right knee (principal); T84.53XA Infection and inflammatory reaction due to internal right knee prosthesis, initial encounter; Y83.8 Other surgical procedures as the cause of abnormal reaction of the patient, or of later complication, without mention of misadventure at the time of the procedure; Y92.89 Other specified places as the place of occurrence of the external cause
CPT/HCPCS: 73720; A9575